=== PATIENT | female | born 1960 | race Caucasian/White ===

== ENCOUNTER → 2018-04-22 08:57 | Outpatient (CLI) | payer BC, SELFPAY ==
--- NOTE | 2018-04-22 09:00 | MM_ITS ---
MM Dig screening mamm BI w/CAD ORDERING PHYSICIAN : Roberto Desai MD PATIENT AGE: 57 years GENDER: Female COMPARISON: March 2017 and December 2015.November 2013 & July 2008 INDICATION: ITS.REASON: SCREENING XMG. Takes Estradiol. Prior cyst aspiration left breast. Family history. Maternal auntswith breast cancer TECHNIQUE: Standard CC and MLO images were obtained. R2 CAD reviewed. FINDINGS: Generalized fatty replacement with lower density breast. RIGHT BREAST. No significant new findings follow up one year recommended.:Stable small intramammary node towards upper-outer quadrant. LEFT BREAST:Stable density at the superior breast Focal densities at the superior left breast 12:00 is been present on multiple previous studies even those dating back to 2007. No significant change or progression. Is also intramammary node at the far upper-outer quadrant left breast which is stable. No additional new findings. IMPRESSION: ...... 1. Stable bilateral mammogram. No new areas of concern. Bilateral follow-up one year Stable densities left breast have been present & overall stable on multiple prior mammograms. In those dating back to 2007. BI-RADS Category: 2 Benign Finding(s) RECOMMENDED FOLLOW-UP: 1YR 1 YEAR FOLLOW-UP (A letter has been sent to the patient regarding results of the study.)
== END ==
PROVIDERS: Family Provider Family Medicine; PCP Family Medicine; Visit Provider Obstetrics & Gynecology
DX: Z12.31 Encounter for screening mammogram for malignant neoplasm of breast (principal)
CPT/HCPCS: 77067

== ENCOUNTER → 2019-05-22 15:53 | Outpatient (CLI) | payer BC, SELFPAY ==
--- NOTE | 2019-05-22 15:56 | MM_ITS ---
PROCEDURE: MM DIG SCREENING MAMM BI W/CAD CLINICAL INDICATION: screening There is a history of breast cancer in the patient's paternal aunts and maternal cousins. There has been a previous cyst aspiration left breast for benign disease. COMPARISON: Mammography History Sheet from 12/21/2014 [facility] DIG MAMM-SCREEN VAHE W/CAD from 03/30/2017 [facility] MM Dig screening mamm BI w/CAD from 04/22/2018 TECHNIQUE: Standard CC and MLO images were obtained. R2 CAD reviewed. FINDINGS: Minimal scattered fibroglandular densities are seen throughout each breast on a background of primarily fatty breast parenchyma. There are stable small benign-appearing nodular densities in each breast the largest of which is upper-outer quadrant left breast likely a low-lying node as it has a somewhat notched border. There is a mole marker left breast. There is no suspicious lesion and no suspicious microcalcifications. There are fatty replaced nodes in both axilla. IMPRESSION: Fibrofatty parenchyma with no suspicious lesions seen BI-RAD Category: 2 Benign Finding(s) FOLLOW-UP: 1YR 1 Year Follow-up (A letter has been sent to the patient regarding results of the study.) Dictated by: Dr. Varun Rodriguez MD 05/24/2019 17:[address] Varun Rodriguez MD in [place] 05/24/2019 17:43
== END ==
PROVIDERS: PCP Nurse Practitioner Family; Visit Provider Obstetrics & Gynecology
DX: Z12.31 Encounter for screening mammogram for malignant neoplasm of breast (principal)
CPT/HCPCS: 77067

== ENCOUNTER → 2020-07-25 07:47 | Outpatient (CLI) | payer BC, SELFPAY ==
--- NOTE | 2020-07-25 07:48 | MM_ITS ---
PROCEDURE: MM DIG SCREENING MAMM BI W/CAD Digital Breast Tomosynthesis Included CLINICAL INDICATION: Routine Screening Mammogram There is a history of breast cancer in the patient's maternal aunts and maternal cousins. There has been a previous biopsy left breast for benign disease. COMPARISON: MG [facility] DIG MAMM-SCREEN VAHE from 12/03/2014 MG DMDXUAVL DIG MAMM-DX UNI ADD VIEWS-LT from 12/21/2014 MG Mammography History Sheet from 12/21/2014 MG [facility] DIG MAMM-SCREEN VAHE W/CAD from 03/30/2017 MG [facility] MM Dig screening mamm BI w/CAD from 04/22/2018 MG MM DIG SCREENING MAMM BI W/CAD from 05/22/2019 TECHNIQUE: Standard CC and MLO images and 3D Tomosynthesis was obtained. R2 CAD reviewed. FINDINGS: Scattered fibroglandular densities are seen throughout both breasts. There are stable nodular densities left breast. There is a mole marker left breast. There is no suspicious lesion and no suspicious microcalcifications. IMPRESSION: Fibrofatty parenchyma with no suspicious lesions seen BI-RAD Category: 2 Benign Finding(s) FOLLOW-UP: 1YR 1 Year Follow-up (A letter has been sent to the patient regarding results of the study.) Dictated by: Dr. Varun Rodriguez MD 07/26/2020 16:16 Dr. Varun Rodriguez MD in [place] 07/26/2020 16:16
== END ==
PROVIDERS: PCP Family Medicine; Visit Provider Obstetrics & Gynecology
DX: Z12.31 Encounter for screening mammogram for malignant neoplasm of breast (principal)
CPT/HCPCS: 77063; 77067

== ENCOUNTER → 2021-07-28 16:42 | Outpatient (CLI) | payer BC, SELFPAY ==
--- NOTE | 2021-07-28 16:42 | MM_ITS ---
PROCEDURE INFORMATION: Exam: MG Bilateral Screening 3D Mammography Exam date and time: 07/28/2021 4:42 PM Age: 60 years old Clinical indication: Encounter for screening mammogram for malignant neoplasm of breast TECHNIQUE: Imaging protocol: Bilateral screening tomosynthesis and 2D mammography including computer-aided detection (CAD) when performed. COMPARISON: 1. MG MM DIG SCREENING MAMM BI W/CAD 07/25/2020 8:06 AM 2. MG MM DIG SCREENING MAMM BI W/CAD 05/22/2019 4:13 PM FINDINGS: MAMMOGRAPHY: Breast composition: The breast tissue is composed of scattered areas of fibroglandular density. Mass: None. Architectural distortion: None. Calcifications: No suspicious calcifications. Asymmetric density: None. Skin thickening: None. Axillary adenopathy: None. IMPRESSION: No mammographic evidence of malignancy. Annual screening is recommended unless otherwise clinically indicated. ASSESSMENT: BI-RADS Category 1: Negative
== END ==
PROVIDERS: PCP Family Medicine; Visit Provider Obstetrics & Gynecology
DX: Z12.31 Encounter for screening mammogram for malignant neoplasm of breast (principal)
CPT/HCPCS: 77063; 77067

== ENCOUNTER → 2022-08-28 13:50 | Outpatient (CLI) | payer BC, SELFPAY ==
--- NOTE | 2022-08-28 13:50 | MM_ITS ---
PROCEDURE INFORMATION: Exam: MG Bilateral Screening 3D Mammography Exam date and time: 08/28/2022 2:26 PM Age: 61 years old Clinical indication: Screening mammogram TECHNIQUE: Imaging protocol: Bilateral Screening tomosynthesis and 2D mammography including computer-aided detection (CAD) when performed. COMPARISON: 1. MG MM DIG SCREENING MAMM BI W/CAD 07/28/2021 4:38 PM 2. MG MM DIG SCREENING MAMM BI W/CAD 07/25/2020 8:06 AM 3. MG MM DIG SCREENING MAMM BI W/CAD 05/22/2019 4:13 PM 4. MG [facility] MM Dig screening mamm BI w/CAD 04/22/2018 9:54 AM FINDINGS: MAMMOGRAPHY: Breast composition: There are scattered areas of fibroglandular density. Mass: Stable benign-appearing subcentimeter nodules are present in the bilateral breasts. No new or morphologically suspicious nodule has developed to suggest malignancy. Architectural distortion: No new or suspicious architectural distortion. Calcifications: No new or suspicious calcifications are present Asymmetric density: No new or suspicious asymmetric density is present Skin thickening: None. Axillary adenopathy: None. IMPRESSION: No mammographic evidence of malignancy. Recommend annual screening mammography unless otherwise clinically indicated. ASSESSMENT: BI-RADS category 2: Benign
== END ==
PROVIDERS: PCP Family Medicine; Visit Provider Obstetrics & Gynecology
DX: Z12.31 Encounter for screening mammogram for malignant neoplasm of breast (principal)
CPT/HCPCS: 77063; 77067

== ENCOUNTER 2023-09-03 07:40 | Outpatient (CLI) | payer BC, SELFPAY ==
--- NOTE | 2023-09-03 07:40 | MM_ITS ---
PROCEDURE INFORMATION: Exam: MG Bilateral Screening 3D Mammography Exam date and time: 09/03/2023 7:51 AM Age: 62 years old Clinical indication: Screening mammogram TECHNIQUE: Imaging protocol: Bilateral Screening tomosynthesis and 2D mammography including computer-aided detection (CAD) when performed. COMPARISON: 1. MG MM DIG SCREENING MAMM BI W/CAD 08/28/2022 2:26 PM 2. MG MM DIG SCREENING MAMM BI W/CAD 07/28/2021 4:38 PM 3. MG MM DIG SCREENING MAMM BI W/CAD 07/25/2020 8:06 AM 4. MG MM DIG SCREENING MAMM BI W/CAD 05/22/2019 4:13 PM FINDINGS: MAMMOGRAPHY: Breast composition: There are scattered areas of fibroglandular density. Mass: Stable benign-appearing subcentimeter nodules are present in the bilateral breasts. No new or morphologically suspicious nodule has developed to suggest malignancy. Architectural distortion: No new or suspicious architectural distortion. Calcifications: No new or suspicious calcifications are present Asymmetric density: No new or suspicious asymmetric density is present Skin thickening: None. Axillary adenopathy: None. IMPRESSION: No mammographic evidence of malignancy. Recommend annual screening mammography unless otherwise clinically indicated. ASSESSMENT: BI-RADS category 2: Benign
== END 2023-09-03 23:59 ==
LOC: RAD 07:40
PROVIDERS: PCP Family Medicine; Visit Provider Obstetrics & Gynecology
DX: Z12.31 Encounter for screening mammogram for malignant neoplasm of breast (principal)
CPT/HCPCS: 77063; 77067

== ENCOUNTER 2023-11-19 08:43 | Outpatient (CLI) | payer BC, SELFPAY ==
--- NOTE | 2023-11-19 08:51 | XR_ITS ---
FINAL REPORT TECHNIQUE: Bone densitometry calculations of the lumbar spine and left hip were obtained. CLINICAL HISTORY: OSTEOPOROSIS FINDINGS: Using L1-4, the bone mineral density of the spine is 1.133 g/cm2, corresponding to T-score of 0.8. Using the left hip, the bone mineral density of the femoral neck is 0.785 g/cm2, corresponding to a T-score of -0.6. Using the right hip, the bone mineral density of the femoral neck is 0.784 g/cm2, corresponding to a T-score of -0.6. NOTE: T-score: Standard deviation compared with peak bone mass of young adult mean. *Following the recommendations of the International Society of Bone densitometry, classification of hip BMD is based on the lower of two T-scores; total hip or femoral neck. IMPRESSION: Normal bone mineral density of the lumbar spine and hip. FRAX was not reported because all of the T-scores are at or above -1.0. Reviewed, Interpreted and Dictated by Clint Garcia III, MD Transcribed by Silvia Cosby Authenticated and [facility]
== END 2023-11-19 23:59 | disposition home or self-care (01) ==
LOC: RAD 08:44
PROVIDERS: PCP Family Medicine; Visit Provider Nurse Practitioner Family
DX: Z78.0 Asymptomatic menopausal state (principal); Z13.820 Encounter for screening for osteoporosis
CPT/HCPCS: 77080

== ENCOUNTER 2024-11-17 15:59 | Outpatient (CLI) | payer BC, SELFPAY ==
--- NOTE | 2024-11-17 16:30 | MM_ITS ---
PROCEDURE INFORMATION: Exam: MG Bilateral Screening 3D Mammography Exam date and time: 11/17/2024 4:13 PM Age: 64 years old Clinical indication: Screening examination.. Family history of breast carcinoma. Personal history of benign left breast biopsy. TECHNIQUE: Imaging protocol: Bilateral Screening tomosynthesis and 2D mammography including computer-aided detection (CAD) when performed. COMPARISON: 1. MG MM DIG SCREENING MAMM BI W/CAD 09/03/2023 7:51 AM 2. MG MM DIG SCREENING MAMM BI W/CAD 08/28/2022 2:26 PM 3. MG MM DIG SCREENING MAMM BI W/CAD 07/28/2021 4:38 PM 4. MG MM DIG SCREENING MAMM BI W/CAD 07/25/2020 8:06 AM 5. MG Mammography History Sheet 12/21/2014 5:02 PM FINDINGS: MAMMOGRAPHY: Breast composition: There are scattered areas of fibroglandular density. Mass: No suspicious masses. Architectural distortion: No suspicious distortion. Calcifications: No suspicious calcifications. Asymmetric density: None. Skin thickening: None. Axillary adenopathy: None. IMPRESSION: No mammographic evidence of malignancy. Annual screening is recommended unless otherwise clinically indicated. ASSESSMENT: BI-RADS Category 1: Negative.
== END 2024-11-17 23:59 | disposition home or self-care (01) ==
LOC: RAD 16:00
PROVIDERS: PCP Family Medicine; Visit Provider Obstetrics & Gynecology
DX: Z12.31 Encounter for screening mammogram for malignant neoplasm of breast (principal)
CPT/HCPCS: 77063; 77067